=== PATIENT | female | born 1985 | race Caucasian/White ===

== ENCOUNTER 2024-09-14 15:31 | Emergency (ER) | payer OTHER, SELFPAY ==
[2024-09-14 15:35] VITALS: BP 187/86
[2024-09-14 16:04] LABS: Urine Albumin 3+ (Neg - Trace); Urine Bilirubin Negative (Negative); Urine Character Slightly Cloudy (Clear); Urine Glucose Negative (Negative); Urine Ketone 2+ (Negative); Urine Leukocyte 2+ (Negative); Urine Nitrite Negative (Negative); Urine Occult Blood 4+ (Negative); Urine Urobilinogen Negative (Neg - 1+)
[2024-09-14 16:05] LABS: Urine Color Pink
[2024-09-14 16:07] LABS: % Basophils 0.5 % (0-2); % Eosinophils 0.8 % (0-6); % Immature Granulocytes 0.4 % (0-0.5); % Lymphocytes 16.9 % (20.5-51.1); % Monocytes 4.5 % (1.7-9.3); % Neutrophils 76.9 % (42.2-75.2); Absolute Basophils 0.1 10^3/uL (0-0.2); Absolute Eosinophils 0.1 10^3/uL (0-0.7); Absolute Lymphocytes 1.8 10^3/uL (1.2-3.4); Absolute Monocytes 0.5 10^3/uL (0.1-0.6); Absolute Neutrophils 8.2 10^3/uL (1.4-6.5); Hematocrit 41.6 % (37.0-47.0); Hemoglobin 14.1 g/dL (12.0-16.0); Mean Corp Hgb Conc. 33.9 g/dL (33.0-37.0); Mean Corpuscular Hgb 30.5 pg (27.0-31.0); Mean Corpuscular Volume 89.8 fL (81.0-99.0); Mean Platelet Volume 10.7 fL (7.4-10.4); Nucleated Red Blood Cells % 0 %; Platelet Count 336 10^3/uL (130-400); Red Blood Cell Count 4.63 10^6/uL (4.20-5.40); White Blood Cell Count 10.6 10^3/uL (4.8-10.8)
[2024-09-14 16:12] LABS: Urine Red Blood Cell >100 /HPF (0-2)
[2024-09-14 16:13] LABS: Urine Bacteria Many (Negative)
[2024-09-14 16:14] LABS: HCG, Serum Qualitative Screen Negative
[2024-09-14 16:18] LABS: ALT (SGPT) 35 U/L (0-35); AST (SGOT) 29 U/L (14-36); Albumin 4.3 g/dl (3.5-5.0); Alkaline Phosphatase 91 U/L (38-126); Blood Urea Nitrogen 15 mg/dl (7-17); Calcium 9.7 mg/dl (8.4-10.2); Carbon Dioxide 23 mmol/L (22-30); Chloride 106 mmol/L (98-107); Glucose 114 mg/dl (70-99); Potassium 4.6 mmol/L (3.5-5.1); Sodium 139 mmol/L (135-145); Total Bilirubin 0.6 mg/dl (0.2-1.3); Total Protein 7.3 g/dl (6.3-8.2); eGFR > 60.00
[2024-09-14 17:10] VITALS: BMI 44.2
--- NOTE | 2024-09-14 17:10 | ED.GENMED ---
History of Present Illness
General
Chief Complaint: Abdominal Pain
Time Seen by Provider: 09/14/24 17:10
History of Present Illness
History of Present Illness:
TIME OF INITIAL ENCOUNTER: 5:15 PM
HPI: Patient presents with left flank pain. This started today. However she did have symptoms that were more consistent with sciatica over the last several weeks which were successfully treated with chiropractic manipulation. She did not have the
pain that she has now when she had the sciatica chronic pain. At times she has been nauseated has not eaten much today.
EXAM:
GENERAL: Well appearing in no distress, elevated BMI
HEENT: Moist oral mucosa
CARDIOVASCULAR: No murmurs, normal heart rate, regular rhythm, No chest wall tenderness
PULMONARY: No respiratory distress, breath sounds are clear and equal
ABDOMEN: Soft with no peritoneal signs, minimal left-sided abdominal tenderness, mild left CVA tenderness
NEUROLOGIC: Excellent strength all extremities, no coordination deficits
PSYCHIATRIC: Appropriate mental status, normal insight and judgement
EXTREMITIES: Nontender, no edema, moves all extremities equally
SKIN: No rash, no lesions
NUMBER AND COMPLEXITY OF PROBLEMS ADDRESSED AT THE ENCOUNTER
� Chronic conditions affecting care: Has had cholecystectomy
� Acute Exacerbation and/or Progression of Chronic Illness: This is an acute problem
� Differential Diagnosis includes: Oblique muscle strain, musculoskeletal back pain, ureteral stone/colic, UTI/pyelonephritis
AMOUNT AND/OR COMPLEXITY OF DATA TO BE REVIEWED AND ANALYZED
� I performed an independent evaluation of and my interpretation is:
EKG:
CT: The CAT scan shows left-sided hydroureteronephrosis due to a 3 mm stone in the distal left ureter.
X-rays:
Laboratory Studies: White count hemoglobin normal, chemistries unremarkable, hCG negative, urinalysis shows greater than 100 red cells per high-powered field but no evidence of infection
Other:
� Review of other/old records: I reviewed records, the patient was seen here with [facility] in 2022
� Clinical information was obtained by an independent historian: None needed
� Prescriptions/Medications Considered but not given:
� Further testing considered but not performed:
RISK OF COMPLICATIONS AND/OR MORBIDITY OR MORTALITY OF PATIENT MANAGEMENT
� Social determinants of health affecting care: Lives at home
� Discussion with other providers:
� Escalation of care including admission/observation vs risk of discharge considered: Microscopic hematuria noted however the patient is on her period. Will obtain CT imaging as she now has new left flank pain which is described
as severe. She is also given Toradol, fluids, Zofran.
ANY OTHER UPDATES:
6:50 PM: I reassessed patient. Unfortunately, she did not receive the medication yet however she appears fairly comfortable. Planning discharge as she has a relatively small distal stone. No evidence of infection.
Past History
Past History
ED Past Medical History: None
ED Past Surgical History: None
Social History
Living: with family
Phy Exam
Physical Exam
Physical Exam:
See HPI
Course
Orders/Labs/Results
Orders:
Orders
09/14/24 15:40
Test Result ONCE
09/14/24 15:43
Complete Blood Count/With Diff Urgent
Comprehensive Metabolic Panel Urgent
HCG, Serum Qualitative Screen Urgent
Comment: Notify provider if positive test present
09/14/24 15:50
Urinalysis Reflex To Culture Urgent
Date Specimen was Collected: 09/14/24
Time Specimen was Collected: 15:40
Urine Microscopic Reflex Cult Urgent
Urine Culture Urgent
MYNOR Source: U
Specimen Description:
Date Specimen was Collected: 09/14/24
Time Specimen was Collected: 15:40
09/14/24 17:33
CT Abd/pel Without Iv Or Oral Urgent
Comment:
Reason For Exam: L flank pain to abd
0.9% Sodium Chloride 1000 ml [Nss] 1,000 ml IV BOLUS
Ketorolac [Toradol] 15 mg IV NOW STA
Ondansetron Injectable [Zofran] 4 mg IV NOW STA
Abnormal Lab Results
09/14/24 09/14/24
15:43 15:50
MPV 10.7 H fL
(7.4-10.4)
Absolute Neuts (auto) 8.2 H 10^3/uL
(1.4-6.5)
Neutrophils % 76.9 H %
(42.2-75.2)
Lymphocytes % 16.9 L %
(20.5-51.1)
Glucose 114 H mg/dl
(70-99)
Urine Ketones 2+ A
(Negative)
Ur Occult Blood Reflex 4+ A
(Negative)
Leukocyte Esterase Rfl 2+ A
(Negative)
Urine RBC >100 A /HPF
(0-2)
Urine Bacteria (Reflex) Many A
(Negative)
Urine Albumin (Reflex) 3+ A
(Neg - Trace)
09/14/24 15:43
09/14/24 15:43
Vital Signs
Initial and Last Documented VS:
Initial Vital Signs
Temp Pulse Resp BP Pulse Ox
37.3 C 97 20 187/86 99
09/14/24 15:35 09/14/24 15:35 09/14/24 15:35 09/14/24 15:35 09/14/24 15:35
Last Documented Vital Signs
Temp Pulse Resp BP Pulse Ox
37.3 C 97 20 187/86 99
09/14/24 15:35 09/14/24 15:35 09/14/24 15:35 09/14/24 15:35 09/14/24 15:35
*Critical Care Note
Total Time (30-74mins, 75-104mins- exclusive of procedures): Not Applicable
ED Attending Note
-
Portions of this chart may have been created with voice recognition software.� Occasional wrong word or��sound alike� substitutions may have occurred due to the inherent limitations of voice recognition software.
Discharge Plan
Departure
Patient Disposition: Home (Routine Discharge)
Date of Disposition: 09/14/24
Time of Disposition: 18:54
Patient with high blood pressure during this ER visit?: Yes
Discharge Problem:
Left ureteral stone
Instructions: Kidney Stones (DC), BLOOD PRESSURE
Prescriptions:
New
oxycodone-acetaminophen [Percocet] 5-325 mg tablet
1 - 2 tab PO Q6HPRN Qty: 14 0RF
ondansetron HCl 4 mg tablet
4 mg PO Q8H PRN (Reason: nausea and vomiting) Qty: 14 0RF
tamsulosin [Flomax] 0.4 mg capsule
0.4 mg PO DAILY Qty: 10 0RF
No Action
meclizine 25 mg tablet
25 mg PO TID PRN (Reason: dizziness) Qty: 20 0RF
Referrals:
Elizabeth Serrano CRNP [Family Provider] -
Activity Restrictions/Additional Instructions:
You have a 3 mm stone in the distal left ureter. This should pass on its own there is no sign of infection in the urine. I have given you the contact information for a local urologist, Dr. Meier. I recommend 3-4 [id number] ibuprofen
(Motrin) every 8 hours with food for a few days. Return here if worse. I am also sending a prescription for narcotic analgesia, Zofran (nausea medicine), and Flomax to help promote stone passage. Return here if worse or other concerns.
Interventions
Interventions:
*Risk Screen - Suicide Last Done: 09/14/24 15:35
Discharge Date and Time
Print Language: BOLIVIAN
[2024-09-14] MEDS: NSS 1000 IV (17:35)
[2024-09-14 17:37] VITALS: BP 150/92
[2024-09-14 18:58] VITALS: BP 158/96
[2024-09-14] MEDS: TORADOL 15 MG IV (19:00)
[2024-09-14] MEDS: ZOFRAN 4 MG IV (19:02)
[2024-09-14] MEDS: PERCOCET 5/325 2 TABLET PO (19:36)
== END 2024-09-14 19:53 | disposition home or self-care (01) ==
LOC: EMR 15:31
PROVIDERS: Emergency Medicine; EMERGENCY PHYSICIAN Emergency Medicine; FAMILY PHYSICIAN Nurse Practitioner
DX: N13.2 Hydronephrosis with renal and ureteral calculous obstruction (principal); Z90.49 Acquired absence of other specified parts of digestive tract
CPT/HCPCS: 99284; 96374; 96375; 96361; 74176; 80053; 81003; 81015; 84703; 85025; 87086